=== PATIENT | female | born 1990 | race Asian ===

== ENCOUNTER 2021-06-19 12:33 | Observation (INO) | payer MEDICAID ==
[~2021-06-19] VITALS: Ht 162 cm; Wt 68.0 kg
== END 2021-06-19 14:05 | disposition home or self-care (01) ==
LOC: SPU 12:33
PROVIDERS: ADMIT Obstetrics & Gynecology; ATTEND Obstetrics & Gynecology
DX: O46.93 Antepartum hemorrhage, unspecified, third trimester (principal); Z3A.35 35 weeks gestation of pregnancy
CPT/HCPCS: G0378